=== PATIENT | female | born 1980 | race Caucasian/White ===

== ENCOUNTER 2021-05-07 08:14 | Observation (INO) ==
[2021-05-07] MEDS ORDERED: 0.9 % Sodium Chloride 1,000 ML IVC ONE ×2 (08:16→08:35)
[2021-05-07] MEDS ORDERED: Folic Acid 1 MG in 0.9 % Sodium Chloride 50 ML IVPB ONE (08:16)
[2021-05-07] MEDS ORDERED: *HR* LORazepam 2 MG/ML VIAL IVP ONE (08:16)
[2021-05-07] MEDS ORDERED: Thiamine (B-1) 200 MG in 0.9 % Sodium Chloride 50 ML IVPB ONE (08:16)
[2021-05-07] MEDS ORDERED: MVI, adult with vitamin K 10 ML, Folic Acid 1 MG, Thiamine (B-1) 200 MG in 0.9 % Sodi... IVC ONE (08:16)
[2021-05-07 08:45] LABS: Bilirubin,Urine Moderate (Negative); Blood,Urine Large (Negative); Clarity,Urine Clear (Clear); Color,Urine Yellow (Yellow); Glucose,Urine (UA) Normal (Normal); Ketones,Urine >=160 mg/dL (Negative); Leukocyte Esterase,Urine Negative (Negative); Nitrite,Urine Negative (Negative); Protein,Urine 100 mg/dL (Neg-Trace); Specific Gravity,Urine >= 1.030 (1.010-1.025); Urobilinogen,Urine Normal (Normal)
[2021-05-07] MEDS ORDERED: 0.9 % Sodium Chloride 1,000 ML IVC SCH (08:45)
[2021-05-07 08:52] LABS: Basophils % 0.3 %; Hematocrit 36.2 % (35.3-44.9); Hemoglobin 12.4 g/dL (11.5-15.4); Immature Granulocytes % 0.3 % (0-4); Lymphocytes # 0.3 K/mcL (0.6-4.6); Lymphocytes % 3.1 %; Mean Corpuscular HGB Conc 34.3 g/dL (31.6-35.5); Mean Corpuscular Volume 96.3 fL (83.0-100.0); Mean Platelet Volume 9.4 fL (9.4-12.4); Monocytes # 1.6 K/mcL (0.0-1.3); Monocytes % 14.9 %; Neutrophils # 8.5 K/mcL (1.6-8.9); Platelet Count 110 K/mcL (140-400); Red Blood Count 3.76 M/mcL (3.82-4.97); Red Cell Distribution Width 13.1 % (11.5-14.5); Segmented Neutrophils % 81.4 %; White Blood Count 10.5 K/mcL (4.3-11.1)
[2021-05-07 08:55] LABS: Bacteria,Urine Moderate per hpf (None-Few); Hyaline Casts,Urine Many per lpf (None Seen); Squamous Epithelial Cell,Urine Many per hpf (None-Few)
[2021-05-07 08:56] LABS: RBC,Urine 0-3 per hpf (0-3); WBC,Urine 0-3 per hpf (0-3)
[2021-05-07 08:57] LABS: VBG HCO3 24 mEq/L (21-27); VBG PCO2 33 mmHg (41-51); VBG PH 7.47 pH Units (7.32-7.42); VBG PO2 36 mmHg (25-50)
[2021-05-07 09:04] LABS: Amphetamine Screen,Urine Negative ng/mL (Cutoff=1000); Barbiturate Screen,Urine Negative ng/mL (Cutoff=200); Benzodiazepines Screen,Urine Negative ng/mL (Cutoff=200); Cannabinoid Screen,Urine Positive ng/mL (Cutoff = 50); Cocaine Screen,Urine Negative ng/mL (Cutoff= 300); Opiate Screen,Urine Negative ng/mL (Cutoff=300); Phencyclidine Screen,Urine Negative ng/mL (Cutoff=25)
[2021-05-07 09:09] LABS: Alanine Aminotransferase 27 Units/L (7-52); Albumin/Globulin Ratio 1.6 (1.1-2.2); Alkaline Phosphatase 64 Units/L (34-104); Aspartate Amino Transferase 41 Units/L (13-39); BUN/Creatinine Ratio 13 (6-26); Bilirubin,Total 1.1 mg/dL (0.3-1.0); Blood Urea Nitrogen 24 mg/dL (6-20); Calcium 8.9 mg/dL (8.6-10.3); Carbon Dioxide 25 mEq/L (23-29); Chloride 83 mEq/L (98-107); Ethanol < 10 mg/dL (Less than 10); Globulin 3.2 g/dL (2.4-3.5); Glucose 240 mg/dL (70-105); Lipase 30 Units/L (11-82); Magnesium 1.3 mg/dL (1.6-2.6); Osmolality,Calculated 288 (280-300); Phosphorous 2.3 mg/dL (2.7-4.5); Potassium 3.4 mEq/L (3.5-5.1); Sodium 133 mEq/L (136-145); Total Protein 8.2 g/dL (6.4-8.9); eGFR For African Americans 37 (> 60); eGFR For Non-African Americans 31 (> 60)
[2021-05-07] MEDS ORDERED: Ondansetron 4 MG/2 ML VIAL IVP PRN (09:19)
[2021-05-07] MEDS ORDERED: Naloxone 0.4 MG/ML INJ IVP PRN (09:19)
[2021-05-07] MEDS ORDERED: *HR* LORazepam 2 MG/ML VIAL IVP PRN ×2 (09:22)
[2021-05-07] MEDS: Ringers Solution, Lactated 1,000 ML IVC SCH ×3 (10:24→18:07)
[2021-05-07] MEDS ORDERED: Water for inj. (sterile) 0 ML ONE (10:35)
[2021-05-07] MEDS: *HR* LORazepam 2 MG/ML VIAL IVP PRN ×2 (10:43→21:41)
[2021-05-07] MEDS ORDERED: Thiamine (B-1) 100 MG, Folic Acid 1 MG, MVI, adult with vitamin K 10 ML in 0.9 % Sodi... IVPB SCH (18:00)
[2021-05-07] MEDS ORDERED: traZODone 50 MG TABLET PO SCH (21:00)
[2021-05-08] MEDS: Ringers Solution, Lactated 1,000 ML IVC SCH ×2 (01:40→10:47)
[2021-05-08 06:40] VITALS: BP 115/77; PULSE 106; RESP 18; TEMP 98.3; O2SAT 95
[2021-05-08 08:39] LABS: Basophils % 0.5 %; Eosinophils # 0.1 K/mcL (0.0-0.6); Eosinophils % 1.2 %; Hemoglobin 9.9 g/dL (11.5-15.4); Immature Granulocytes % 0.2 % (0-4); Lymphocytes # 0.8 K/mcL (0.6-4.6); Lymphocytes % 18.9 %; Mean Corpuscular Hemoglobin 32.9 pg (28.0-33.3); Mean Corpuscular Volume 99.7 fL (83.0-100.0); Mean Platelet Volume 10.2 fL (9.4-12.4); Monocytes # 0.6 K/mcL (0.0-1.3); Monocytes % 13.1 %; Neutrophils # 2.8 K/mcL (1.6-8.9); Red Blood Count 3.01 M/mcL (3.82-4.97); Red Cell Distribution Width 13.5 % (11.5-14.5); Segmented Neutrophils % 66.1 %; White Blood Count 4.3 K/mcL (4.3-11.1)
[2021-05-08 08:58] LABS: Platelet Count 75 K/mcL (140-400)
[2021-05-08 08:59] LABS: BUN/Creatinine Ratio 15 (6-26); Blood Urea Nitrogen 8 mg/dL (6-20); Calcium 8.2 mg/dL (8.6-10.3); Carbon Dioxide 29 mEq/L (23-29); Chloride 103 mEq/L (98-107); Glucose 77 mg/dL (70-105); Magnesium 1.5 mg/dL (1.6-2.6); Osmolality,Calculated 289 (280-300); Potassium 3.3 mEq/L (3.5-5.1); Sodium 141 mEq/L (136-145); eGFR For African Americans > 60 (> 60); eGFR For Non-African Americans > 60 (> 60)
[2021-05-08] MEDS ORDERED: FLUoxetine 20 MG CAPSULE PO SCH (09:00)
[2021-05-08] MEDS ORDERED: Thiamine (B-1) 100 MG, Folic Acid 1 MG, MVI, adult with vitamin K 10 ML in 0.9 % Sodi... IVPB SCH (09:00)
[2021-05-08] MEDS: *HR* LORazepam 2 MG/ML VIAL IVP PRN (10:39)
== END 2021-05-08 11:32 | disposition left against medical advice (07) ==
LOC: INPPIK 08:14 → EMEROOPIK 08:14 → INPPIK 10:03
PROVIDERS: ADMIT Internal Medicine; ATTEND Internal Medicine